=== PATIENT | male | born 1965 | race Two or more races ===

== ENCOUNTER 2017-05-15 16:46 | Emergency (ER) | payer OTHER ==
[~2017-05-15] VITALS: Ht 172.7 cm; Wt 63.5 kg
[~2017-05-15 16:46] MED LIST: KEPPRA1000 MG ORAL; ZONEGRAN100 MG ORAL
[2017-05-15 18:40] LABS: BASOPHILS % (AUTO) 3.2 % (0.0-2.0); LYMPHOCYTES % (AUTO) 31.4 % (20.0-45.0); MEAN CORPUSCULAR HEMOGLOBIN 34.9 PG (27.0-31.0); MEAN CORPUSCULAR HGB CONC 34.5 G/DL (32.0-36.0); MEAN CORPUSCULAR VOLUME 101 FL (80-99); MEAN PLATELET VOLUME 8.3 FL (6.5-10.1); MONOCYTES % (AUTO) 10.5 % (1.0-10.0); NEUTROPHILS % (AUTO) 53.9 % (45.0-75.0); PLATELET COUNT 159 K/UL (150-450); RED BLOOD COUNT 4.33 M/UL (4.70-6.10); RED CELL DISTRIBUTION WIDTH 11.3 % (11.6-14.8); WHITE BLOOD COUNT 3.9 K/UL (4.8-10.8)
--- NOTE | 2017-05-15 19:01 | Emergency Room Report ---
History of Present Illness General Chief Complaint: Alcohol Intoxication Present Illness HPI 51 y/o male c/o hallucination x today. States he was drinking wine and then was looking for his friend only to discover he was hallucinating. Patient states that he called 911 for his ALOC. Patient states he has no hx of psych conditions and denies any headache, nausea, blurred vision, drug use or any other physical complaint outside of being drunk. Patient denies SI, HI, AH or VH. Allergies: Coded Allergies: No Known Allergies (Unverified , 04/02/16) Patient History Past Medical History: see triage record Past Surgical History: none Pertinent Family History: none Immunizations: UTD Reviewed Nursing Documentation: PMH: Agreed, PSxH: Agreed Nursing Documentation-PMH Hx Cardiac Problems: No Hx Cancer: No Hx Gastrointestinal Problems: No Hx Neurological Problems: Yes - seizure Hx Cerebrovascular Accident: No Hx Transient Ischemic Attacks: No Hx Dementia: No Hx Alzheimer's Disease: No Hx Parkinson's Disease: No Hx Meningitis: No Hx Encephalitis: Yes Hx Seizures: Yes Hx Epilepsy: No Hx Multiple Sclerosis: No Hx Cerebral Palsy: No Hx Amyotrophic Lat Sclerosis: No Hx Guillian-[place] Syndrome: No Hx Paralysis: No Hx Peripheral Neuropathy: No Hx Spinal Cord Injury: No Hx Head Trauma: No Hx Traumatic Brain Injury: No Hx Memory Loss: No Hx Concentration Difficulty: No Hx Speech Problem: No Hx Tremors: No Hx Vertigo: No Hx Dizziness: No Hx Syncope: No Hx Headaches: No Hx Aphasia: No Hx Dysphasia: No Hx Numbness: No Hx Weakness: No Hx Fatigue: No Hx Neurologic Surgery: No Hx Brain Shunt: No Review of Systems All Other Systems: negative except mentioned in HPI Physical Exam Vital Signs Date Time Temp Pulse Resp B/P (MAP) Pulse Ox O2 Delivery O2 Flow Rate FiO2 05/15/17 16:41 98.4 120 20 140/80 98 Room Air Sp02 EP Interpretation: reviewed, normal General Appearance: no apparent distress, alert, GCS 15, non-toxic Head: normocephalic, atraumatic Eyes: bilateral eye PERRL, bilateral eye EOMI ENT: hearing grossly normal, normal pharynx, no angioedema, normal voice Neck: full range of motion, supple/symm/no masses Respiratory: chest non-tender, lungs clear, normal breath sounds, speaking full sentences Cardiovascular #1: no edema, tachycardia Gastrointestinal: non tender, soft Musculoskeletal: back normal, digits/nails normal, gait/station normal, normal range of motion, non-tender Neurologic: alert, responsive, combat control III-XII nml as tested, motor strength/tone normal, DTRs symmetric, sensory intact, speech normal, oriented - x 2 Psychiatric: mood/affect normal, no suicidal/homicidal ideation Skin: normal color, no rash, warm/dry, well hydrated Lymphatic: no adenopathy Medical Decision Making PA Attestation Dr. Glynn my supervising physician with whom patient management has been discussed with. Diagnostic Impression: Primary Impression: Acute alcoholic intoxication Qualified Codes: F10.921 - Alcohol use, unspecified with intoxication delirium ER Course Pt. presents to the ED c/o ETOH intoxication with hallucination Ddx considered but are not limited to stroke, ICH, drug use, ETOH intoxication, acute psychosis, meningitis, endocarditis, sepsis, alzheimers / dementia, trauma Vital signs: are WNL, pt. is afebrile H&PE are most consistent with ETOH intoxication ORDERS / ED INTERVENTIONS: My Orders - CATIE MAO Procedure Category Date Status Time Vital Signs CARE 05/15/17 Transmitted 17:53 Iv Access / Saline CARE 05/15/17 Transmitted Lock 17:53 Ekg Tracing Only CARD 05/15/17 Logged 17:53 Acetaminophen Level LAB 05/15/17 Complete 17:53 Alcohol Blood/Serum LAB 05/15/17 Complete 17:53 Cbc W/ Differential LAB 05/15/17 Complete 17:53 CMP LAB 05/15/17 Complete 17:53 Drug Screen Urine LAB 05/15/17 Logged 17:53 Salicylates Level LAB 05/15/17 Complete 17:53 Ct Head No Contrast CT 05/15/17 Taken 17:53 Saline 10ml Flush PHA 05/15/17 Complete (Saline 10ml Flush) 18:00 DISCHARGE: At this time pt. is stable for d/c to home. Will provide printed patient care instructions, and any necessary prescriptions. Care plan and follow up instructions have been discussed with the patient prior to discharge. Laboratory Tests Test 05/15/17 18:17 White Blood Count 3.9 K/UL (4.8-10.8) L Red Blood Count 4.33 M/UL (4.70-6.10) L Hemoglobin 15.1 G/DL (14.2-18.0) Hematocrit 43.8 % (42.0-52.0) Mean Corpuscular Volume 101 FL (80-99) H Mean Corpuscular Hemoglobin 34.9 PG (27.0-31.0) H Mean Corpuscular Hemoglobin Concent 34.5 G/DL (32.0-36.0) Red Cell Distribution Width 11.3 % (11.6-14.8) L Platelet Count 159 K/UL (150-450) Mean Platelet Volume 8.3 FL (6.5-10.1) Neutrophils (%) (Auto) 53.9 % (45.0-75.0) Lymphocytes (%) (Auto) 31.4 % (20.0-45.0) Monocytes (%) (Auto) 10.5 % (1.0-10.0) H Eosinophils (%) (Auto) 1.0 % (0.0-3.0) Basophils (%) (Auto) 3.2 % (0.0-2.0) H Sodium Level 145 MMOL/L (136-145) Potassium Level 3.7 MMOL/L (3.5-5.1) Chloride Level 107 MMOL/L (98-107) Carbon Dioxide Level 22 MMOL/L (21-32) Anion Gap 16 mmol/L (5-15) H Blood Urea Nitrogen 7 mg/dL (7-18) Creatinine 1.0 MG/DL (0.55-1.30) Estimate Glomerular Filtration Rate > 60 mL/min (>60) Glucose Level 83 MG/DL (74-106) Calcium Level 9.1 MG/DL (8.5-10.1) Total Bilirubin 0.5 MG/DL (0.2-1.0) Aspartate Amino Transferase (AST) 104 U/L (15-37) H Alanine Aminotransferase (ALT) 102 U/L (12-78) H Alkaline Phosphatase 54 U/L (46-116) Total Protein 7.9 G/DL (6.4-8.2) Albumin 4.4 G/DL (3.4-5.0) Globulin 3.5 g/dL Albumin/Globulin Ratio 1.3 (1.0-2.7) Salicylates Level 0.7 ug/mL (2.8-20) L Acetaminophen Level < 2 MCG/ML (10-30) L Serum Alcohol 208 mg/dL EKG Diagnostic Results EKG Time: 18:13 EP Interpretation: Sinus Tach Rate: tachycardiac ST Segments: no acute changes CT/MRI/US Diagnostic Results CT/MRI/US Diagnostic Results : Imaging Test Ordered: CT Head Impression Comparison 04/02/2016 No intracranial hemorrhage, mass effect or CT evidence of acute infarct Ventricles are unchanged in size and remain midline Left temporal encephalomalacia again seen Visualized paranasal sinuses, mastoid and orbits are within limits Last Vital Signs Date Time Temp Pulse Resp B/P (MAP) Pulse Ox O2 Delivery O2 Flow Rate FiO2 05/15/17 16:41 98.4 120 20 140/80 98 Room Air Status: improved Reevaluation Impression Patient states he feels normal and would like to go home. Labs + for .[address] negative. Patient now A&O x 4. 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 Disposition: HOME, SELF-CARE Condition: Improved CATIE MAO May 15, 2017 19:00
[2017-05-15 19:02] LABS: ANION GAP 16 mmol/L (5-15); CALCIUM 9.1 MG/DL (8.5-10.1); CARBON DIOXIDE 22 MMOL/L (21-32); CHLORIDE 107 MMOL/L (98-107); GLOMERULAR FILTRATION RATE > 60 mL/min (>60); POTASSIUM 3.7 MMOL/L (3.5-5.1); SODIUM 145 MMOL/L (136-145)
[2017-05-15 19:06] LABS: ACETAMINOPHEN < 2 MCG/ML (10-30); ALANINE AMINOTRANSFERASE 102 U/L (12-78); ALBUMIN/GLOBULIN RATIO 1.3 (1.0-2.7); ALCOHOL 208 mg/dL; ASPARTATE AMINO TRANSFERASE 104 U/L (15-37); TOTAL PROTEIN 7.9 G/DL (6.4-8.2)
[2017-05-15 19:14] VITALS: BP 147/99
[2017-05-15 19:34] VITALS: BP 147/99
--- NOTE | 2017-05-16 09:01 | Diagnostic Imaging Report ---
Indications: Altered level of consciousness Technique: Spiral acquisitions obtained through the brain. Angled axial and coronal 5 x 5 mm slices were reconstructed. Total dose length product 1432 mGycm. CTDI vol(s) 70 mGy. Dose reduction achieved using automated exposure control Comparison: 04/02/2016 Findings: There is age-related enlargement of the ventricles and extra axial CSF spaces. There is questionably an old lacunar infarct in the anterior left thalamus, and questionably a tiny old lacunar infarct in the anterior right thalamus., Unchanged from 2016 small focus of encephalomalacia is seen in the left posterior temporal lobe, unchanged. The ventricles and extra-axial CSF spaces are prominent for age. Visualized orbits and sinuses are unremarkable. The calvarium is intact. Impression: Mild prominence of the ventricles and extra axial CSF spaces, unchanged since 2016 Left temporal encephalomalacia, unchanged. Questionable bilateral basal ganglia lacunar infarcts Negative for acute intracranial bleed or mass effect This agrees with the preliminary interpretation provided overnight by [facility]erad[facility] service. The CT scanner at [facility] is accredited by the [employer] and the scans are performed using protocols designed to limit radiation exposure to as low as reasonably achievable to attain images of sufficient resolution adequate for diagnostic evaluation.
--- NOTE | 2017-05-18 16:22 | Cardiology Report ---
APPROVED REPORT EKG Measurement Heart [id number] Sinus tachycardia Possible Left atrial enlargement Septal infarct, age undetermined Abnormal ECG
== END 2017-05-15 19:50 | disposition home or self-care (01) ==
LOC: EDBD 16:46 → EMR 19:39
DX: F10.129 Alcohol abuse with intoxication, unspecified (principal); R44.3 Hallucinations, unspecified; R41.82 Altered mental status, unspecified
CPT/HCPCS: 36415; 70450; 80053; 85025; 93005; 99284; G0480; 80329

== ENCOUNTER 2018-10-22 18:23 | Emergency (ER) | payer OTHER ==
[~2018-10-22] VITALS: Ht 175.3 cm; Wt 77.1 kg
[2018-10-22 18:40] VITALS: BP 135/99
--- NOTE | 2018-10-22 18:40 | NUR ---
ED Nurse Note: pt arrives via [facility] with c/o etoh use today and pt was walking home. pt with slurred speech and unsteady gait. pt unable to give information aside from his name, pt has slurred speech. seen by [facility]. with orders made and carried out. will continue to monitor
--- NOTE | 2018-10-22 19:15 | Emergency Room Report ---
History of Present Illness General Chief Complaint: Alcohol Intoxication Source: EMS Present Illness HPI Patient is brought by EMS. Apparently he's been drinking a lot of vodka. He was trying to get into the front gate of his where he is staying. He was unable to do so. The patient was unattended and unsteady on his feet and unable to ambulate and therefore they transported patient here. The patient denies any suicidal ideation. He will not stay whether he is ingested other substances. The patient has a history of seizures. He takes large doses of Keppra and Zonegran. He has been admitted for uncontrolled seizures in the past. Prior CT scans that showed left encephalomalacia. The patient's reports that he has problems with alcohol abuse. She states is never gone to rehab or been in Alcoholics Anonymous. She states that he is not claimed suicidal or homicidal intention. She is concerned because he has seizures if he does not take his medication as prescribed. The patient is in is unable to give further medical history. Allergies: Coded Allergies: No Known Allergies (Unverified , 04/02/16) Patient History Limited by: medical condition Past Medical History: see triage record, old chart reviewed Social History: Reports: alcohol use Social History Narrative , is out of town Maria Antonia Oliveira Reviewed Nursing Documentation: PMH: Agreed; PSxH: Agreed Nursing Documentation-PM Past Medical History: No History, Except For Hx Cardiac Problems: No Hx Cancer: No Hx Gastrointestinal Problems: No History Of Psychiatric Problem: Yes - etoh/substance abuse Hx Neurological Problems: Yes - seizure Hx Cerebrovascular Accident: No Hx Transient Ischemic Attacks: No Hx Dementia: No Hx Alzheimer's Disease: No Hx Parkinson's Disease: No Hx Meningitis: No Hx Encephalitis: Yes Hx Seizures: Yes Hx Epilepsy: No Hx Multiple Sclerosis: No Hx Cerebral Palsy: No Hx Amyotrophic Lat Sclerosis: No Hx Guillian-[place] Syndrome: No Hx Paralysis: No Hx Peripheral Neuropathy: No Hx Spinal Cord Injury: No Hx Head Trauma: No Hx Traumatic Brain Injury: No Hx Memory Loss: No Hx Concentration Difficulty: No Hx Speech Problem: No Hx Tremors: No Hx Vertigo: No Hx Dizziness: No Hx Syncope: No Hx Headaches: No Hx Aphasia: No Hx Dysphasia: No Hx Numbness: No Hx Weakness: No Hx Fatigue: No Hx Neurologic Surgery: No Hx Brain Shunt: No Review of Systems All Other Systems: limited Physical Exam Vital Signs Date Time Temp Pulse Resp B/P (MAP) Pulse Ox O2 Delivery O2 Flow Rate FiO2 10/22/18 18:18 98.1 76 20 94 Room Air Sp02 EP Interpretation: reviewed, normal General Appearance: alert, other - Ataxic Head: normocephalic, atraumatic Eyes: bilateral eye PERRL, bilateral eye EOMI - Nystagmus, bilateral eye Scleral Injection ENT: moist mucus membranes - No lingual macerations Neck: supple, no bony tend Respiratory: lungs clear, normal breath sounds Cardiovascular #1: regular rate, rhythm Cardiovascular #2: 2+ radial (R) Gastrointestinal: normal inspection, non tender, no mass, non-distended, decreased bowel sounds Genitourinary: no CVA tenderness Musculoskeletal: back normal, normal range of motion Neurologic: responsive, motor strength/tone normal, DTRs symmetric, sensory intact, other - Slow to respond with slurring and ataxia Psychiatric: other - Lethargic Skin: normal inspection, warm/dry Medical Decision Making Medical: Alcohol Abuse Behavioral: Other Reaction to Intervention: No change Restraint Reassesment I, Tanvir Nichols MD, have personally evaluated this patient. Laboratory tests have been reviewed and addressed accordingly. The patient is deemed to present a danger to themselves. This is based on the exam, history (provided by EMS and family) and observed or reported behavior. Attempts for non-invasive measures have been considered and/or attempted, however, have been futile. It is in the best interest of the nursing staff, the patient, and others involved in this patient's care that non-behavioral restraints be applied. Patient evaluation reveals the following: Poor judgment, unsteady on feet, elevated blood alcohol level Diagnostic Impression: Primary Impression: Acute alcoholic intoxication Qualified Codes: F10.929 - Alcohol use, unspecified with intoxication, unspecified Additional Impression: History of seizures ER Course Patient presents unable to ambulate after alcohol ingestion with a history of seizures. Differential includes acute alcohol intoxication, electrolyte imbalance, other toxic ingestion amongst others. He has a nonfocal neurologic exam although he is ataxic and has nystagmus at this time. Evaluation will be with EKG, chest x-ray and labs including blood alcohol and tox screen. The patient is unable to ambulate and therefore unable to go home. Discussed with . States no SI. Alcohol abuse in past, never with rehab. BAL 457. Several attempts to leave the emergency department. Patient unable to understand risks of leaving and is at risk for self injury. None behavioral restraints applied and ordered. Ambulatory but poor judgement @ 23:05 - signed out to Dr. Herman. Laboratory Tests Test 10/22/18 18:55 White Blood Count 3.8 K/UL (4.8-10.8) L Red Blood Count 4.52 M/UL (4.70-6.10) L Hemoglobin 16.0 G/DL (14.2-18.0) Hematocrit 44.3 % (42.0-52.0) Mean Corpuscular Volume 98 FL (80-99) Mean Corpuscular Hemoglobin 35.5 PG (27.0-31.0) H Mean Corpuscular Hemoglobin Concent 36.2 G/DL (32.0-36.0) H Red Cell Distribution Width 11.2 % (11.6-14.8) L Platelet Count 225 K/UL (150-450) Mean Platelet Volume 5.9 FL (6.5-10.1) L Neutrophils (%) (Auto) 33.3 % (45.0-75.0) L Lymphocytes (%) (Auto) 45.7 % (20.0-45.0) H Monocytes (%) (Auto) 13.9 % (1.0-10.0) H Eosinophils (%) (Auto) 2.6 % (0.0-3.0) Basophils (%) (Auto) 4.6 % (0.0-2.0) H Sodium Level 148 MMOL/L (136-145) H Potassium Level 4.0 MMOL/L (3.5-5.1) Chloride Level 104 MMOL/L (98-107) Carbon Dioxide Level 33 MMOL/L (21-32) H Anion Gap 11 mmol/L (5-15) Blood Urea Nitrogen 7 mg/dL (7-18) Creatinine 0.9 MG/DL (0.55-1.30) Estimate Glomerular Filtration Rate > 60 mL/min (>60) Glucose Level 103 MG/DL (74-106) Calcium Level 8.8 MG/DL (8.5-10.1) Total Bilirubin 0.3 MG/DL (0.2-1.0) Aspartate Amino Transferase (AST) 116 U/L (15-37) H Alanine Aminotransferase (ALT) 105 U/L (12-78) H Alkaline Phosphatase 77 U/L (46-116) Total Creatine Kinase 96 U/L (26-308) Troponin I 0.000 ng/mL (0.000-0.056) Total Protein 8.4 G/DL (6.4-8.2) H Albumin 4.3 G/DL (3.4-5.0) Globulin 4.1 g/dL Albumin/Globulin Ratio 1.0 (1.0-2.7) Salicylates Level 0.9 ug/mL (2.8-20) L Urine Opiates Screen Negative (NEGATIVE) Acetaminophen Level < 2 MCG/ML (10-30) L Urine Barbiturates Screen Negative (NEGATIVE) Phencyclidine (PCP) Screen Negative (NEGATIVE) Urine Amphetamines Screen Negative (NEGATIVE) Urine Benzodiazepines Screen Negative (NEGATIVE) Urine Cocaine Screen Negative (NEGATIVE) Urine Marijuana (THC) Screen Negative (NEGATIVE) Serum Alcohol 451 mg/dL EKG Diagnostic Results Rate: normal Rhythm: NSR ST Segments: no acute changes - LAD Rhythm Strip Diag. Results EP Interpretation: yes Rhythm: NSR, no PVC's, no ectopy Chest X-Ray Diagnostic Results Chest X-Ray Diagnostic Results : Chest X-Ray Ordered: Yes # of Views/Limited/Complete: 1 View Indication: Other EP Interpretation: Yes Interpretation: no consolidation, no effusion, no pneumothorax Impression: No acute disease Electronically Signed by: Electronically signed by Tanvir Nichols MD Last Vital Signs Date Time Temp Pulse Resp B/P (MAP) Pulse Ox O2 Delivery O2 Flow Rate FiO2 10/22/18 18:40 76 20 Room Air 10/22/18 18:40 98.1 135/99 94 Status: improved Tanvir Nichols MD October 22, 2018 19:15
--- NOTE | 2018-10-22 19:20 | NUR ---
HAND-OFF: Report given to Myla TOPETE. pt is on bed, with ongoing ivf. pt is on soft restraint as per ermd order. pt not in acute distress. vs within normal limit.
[2018-10-22 19:26] LABS: BASOPHILS % (AUTO) 4.6 % (0.0-2.0); EOSINOPHILS % (AUTO) 2.6 % (0.0-3.0); HEMATOCRIT 44.3 % (42.0-52.0); LYMPHOCYTES % (AUTO) 45.7 % (20.0-45.0); MEAN CORPUSCULAR VOLUME 98 FL (80-99); MONOCYTES % (AUTO) 13.9 % (1.0-10.0); NEUTROPHILS % (AUTO) 33.3 % (45.0-75.0); PLATELET COUNT 225 K/UL (150-450); RED BLOOD COUNT 4.52 M/UL (4.70-6.10); RED CELL DISTRIBUTION WIDTH 11.2 % (11.6-14.8); WHITE BLOOD COUNT 3.8 K/UL (4.8-10.8)
[2018-10-22 19:38] LABS: ANION GAP 11 mmol/L (5-15); BLOOD UREA NITROGEN 7 mg/dL (7-18); CALCIUM 8.8 MG/DL (8.5-10.1); CARBON DIOXIDE 33 MMOL/L (21-32); CHLORIDE 104 MMOL/L (98-107); CREATININE 0.9 MG/DL (0.55-1.30); SODIUM 148 MMOL/L (136-145)
[2018-10-22 19:47] LABS: ALANINE AMINOTRANSFERASE 105 U/L (12-78); ALBUMIN 4.3 G/DL (3.4-5.0); ALKALINE PHOSPHATASE 77 U/L (46-116); ASPARTATE AMINO TRANSFERASE 116 U/L (15-37); BILIRUBIN,TOTAL 0.3 MG/DL (0.2-1.0); CREATINE KINASE 96 U/L (26-308)
--- NOTE | 2018-10-22 19:53 | NUR ---
ED Nurse Note: Patient is relaxing, unwilling to cooperate at this time. Will continue to monitor and restart IV.
--- NOTE | 2018-10-22 20:57 | NUR ---
ED Nurse Note: Patient verbalized intent to be cooperative and not remove iv again. Restraints discontinued at this time.
--- NOTE | 2018-10-22 21:39 | NUR ---
ED Nurse Note: Patient is sleeping, comfortably with no s/s of acute distress.
--- NOTE | 2018-10-22 23:02 | NUR ---
ED Nurse Note: PATIENT REMOVED IV AGAIN, PLACED ON SOFT RESTRAINTS.
--- NOTE | 2018-10-22 23:31 | NUR ---
ED Nurse Note: patient in bed un restrained. resting comfortably.
--- NOTE | 2018-10-23 00:19 | NUR ---
ED Nurse Note: Dr. Nichols spoke with patient's , Maria Antonia Oliveira [phone] - she is flying in from [place], landing ~ 0830.
[2018-10-23 01:20] VITALS: BP 132/95
--- NOTE | 2018-10-23 01:20 | NUR ---
ER DISCHARGE NOTE: Patient is cleared to be discharged per ERMD, pt is aox4, on room air, with stable vital signs. pt was given dc and prescription instructions, pt was able to verbalize understanding, pt id band and iv site removed without complications. pt is able to ambulate with steady gait. pt took all belongings. a taxi cab was called for the patient
--- NOTE | 2018-10-23 11:03 | Diagnostic Imaging Report ---
Indication: Dyspnea Comparison: None A single view chest radiograph was obtained. Findings: Lungs are clear. Heart size is normal. The aorta is ectatic. There is an old fracture of the right distal clavicle and the acromioclavicular dislocation. The right distal clavicle is high riding and superiorly displaced by about 2 cm. IMPRESSION: No acute cardiopulmonary disease.
== END 2018-10-23 01:20 | disposition home or self-care (01) ==
LOC: EDBD 18:23 → EMR 19:10
DX: F10.120 Alcohol abuse with intoxication, uncomplicated (principal); G40.909 Epilepsy, unspecified, not intractable, without status epilepticus; Z79.899 Other long term (current) drug therapy
CPT/HCPCS: 36415; 71045; 80053; 80299; 80307; 82550; 84484; 85025; 93005; 96360; 99284; G0480; 80329